=== PATIENT | female | born 2000 | race Caucasian/White ===

== ENCOUNTER 2023-09-29 12:30 | Emergency (ER) | payer MEDICAID ==
[~2023-09-29] VITALS: Ht 152.4 cm; Wt 51.0 kg
[2023-09-29 12:35] VITALS: PULSE 91
[2023-09-29 12:36] VITALS: BP 127/67; RESP 16; TEMP 98.1; O2SAT 97
[2023-09-29] MEDS ORDERED: KETOROLAC 30MG/ML VIAL IM ONE (13:45)
[2023-09-29] MEDS ORDERED: PROCHLORPERAZINE 10MG/2ML VIAL IM ONE (13:45)
[2023-09-29] MEDS ORDERED: IBUP-2029 MT (15:51)
[2023-09-29] MEDS ORDERED: PROC-11 MT (15:51)
== END 2023-09-29 16:11 | disposition home or self-care (01) ==
LOC: ER 12:44
DX: R51.9 Headache, unspecified (principal)
CPT/HCPCS: 96372; 99284; J1885; J0780; Z7610